=== PATIENT | male | born 1995 | race Caucasian/White ===

== ENCOUNTER 2024-05-27 19:03 | Emergency (ER) | payer SELFPAY ==
--- NOTE | 2024-05-27 19:30 | ED_ITS ---
HPI - URI/Sore Throat General Chief Complaint: Upper Respiratory Infection Stated Complaint: Bodyaches/Sinus Time Seen by Provider: 05/27/24 19:30 Source: patient Mode of arrival: ambulatory Limitations: no limitations History of Present Illness HPI Narrative: Alfred is a 28-year-old male patient presenting to the clinic today with complaints of tactile fever, body aches, headache, and sinus congestion x1 day. He reports his fiancee is also ill. MD elicited complaint: fever, sore throat and nasal congestion Review of Systems Review of Systems: Pertinent positives per HPI. Patient denies any fever, chills, rash, headache, visual changes, dizziness, cough, shortness of breath, chest pain, palpitations, nausea, vomiting, diarrhea, constipation, abdominal pain, or any urinary issues. PMFSH Comments At the time of my signature, I reviewed and agree with the nursing past medical, surgical, social, and family history. There is no relevant family history pertinent to the patient complaint. Exam Narrative: General: Well-developed, well nourished, in no apparent distress Head: Normocephalic, atraumatic Eyes: Pupils equally round and reactive to light bilaterally, EOM intact, sclera and conjunctive clear, no discharge, lids normal Ears: TMs intact and clear, ear canals clear, no drainage, grossly hearing normal. Nose: Nares patent, clear nasal discharge, no inflammation, no sinus tenderness. Mouth: Oral pharynx red without lesions or masses, good dentition, MMM. Postnasal drip Neck: Supple, trachea midline, no enlargement of anterior or posterior cervical nodes, no thyroid masses or goiter palpable. Cardio: Regular rate and rhythm, s1 and s2 normal, no murmur appreciated. Resp: Clear to auscultation bilaterally, no rhonchi, rales, wheezing or rubs Course Course Emergency Course: Portions of this record may have been created with voice recognition software. Level of Care: Express Care Visit Vital Signs Vital signs: Vital Signs Temperature 36.6 C 05/27/24 19:34 Pulse Rate 83 05/27/24 19:34 Respiratory Rate 15 05/27/24 19:34 Blood Pressure 136/66 05/27/24 19:34 Pulse Oximetry 97 05/27/24 19:34 Oxygen Delivery Room Air 05/27/24 19:34 Temperature 36.6 C 05/27/24 19:34 Pulse Rate 83 05/27/24 19:34 Respiratory Rate 15 05/27/24 19:34 Blood Pressure 136/66 05/27/24 19:34 Pulse Oximetry 97 05/27/24 19:34 Oxygen Delivery Room Air 05/27/24 19:34 Vital signs reviewed MDM - URI/Sore Throat MDM Narrative Medical decision making narrative: At the time of visit patient is resting comfortably on the exam table. Patient appears to be nontoxic. Labs: Influenza testing is positive for influenza A. Plan: Patient has influenza. Prescription for Tamiflu was sent to the [facility]. Supportive measures were discussed with the patient and they voiced understanding discharge instructions and agrees to treatment plan. Return precautions reviewed Differential Diagnosis Differential diagnosis: Likely upper respiratory infection, otitis media, sinusitis, viral infection, bronchitis, influenza, pharyngitis and other (COVID) Lab Data Labs: Lab Results 05/27/24 Range/Units 19:41 POC Influenza A Ag Positive (Negative) POC Influenza B Ag Negative (Negative) POC SARS CoV-2 Ag Negative (Negative) Discharge Plan Discharge Clinical Impression: Influenza A Patient Disposition: Home, Self-Care Condition: Stable Instructions: Antibiotic Form, Influenza (ED) Additional Instructions: Influenza testing is positive for influenza A. COVID test is negative. Take prescription medications only as prescribed-Tamiflu Increase fluids and stay well hydrated Tylenol/motrin for pain/fever Flonase and OTC antihistamines as directed Vicks vapor rub to open sinuses Sinus rinses for congestion Cepacol spray, cough drops, throat lozenges, warm tea with honey/lemon, gargle salt water to soothe throat BRAT diet for diarrhea Clear liquids x 24 hours then advance as tolerated for nausea/vomiting Go to the ED if you develop a worsening in your condition- high fever not controlled by Tylenol or Motrin, dehydration, weakness, lethargy, shortness of breath, or chest pain. Follow up with your PCP in 3-5 days if symptoms persist. Patient Language: Palauan Prescriptions: New oseltamivir [Tamiflu] 75 mg capsule 75 mg PO Q12H 5 Days Qty: 10 0RF Follow-up/Referrals: Lamonte,Gibran Adam MD [Primary Care Provider] - Stand Alone Forms: Work/School Release IP Time of Disposition: 19:38 Quality NIHSS Nursing Documentation ED NIHSS nursing documentation: reviewed/agree
[2024-05-27 19:34] VITALS: BP 136/66; PULSE 83; RESP 15; TEMP 36.6; O2SAT 97
[2024-05-27 19:44] LABS: EDCOVIDSCREEN Negative (Negative)
[2024-05-27 19:49] LABS: EDINFLUASCREEN Positive (Negative); EDINFLUBSCREEN Negative (Negative)
== END 2024-05-27 19:45 | disposition home or self-care (01) ==
PROVIDERS: Emergency Provider Nurse Practitioner Family; PCP Family Medicine
DX: J10.1 Influenza due to other identified influenza virus with other respiratory manifestations (principal); Z20.822 Contact with and (suspected) exposure to COVID-19
CPT/HCPCS: 87426; 87804; 99203; G0463

== ENCOUNTER 2024-09-05 08:27 | Emergency (ER) | payer BC, SELFPAY ==
[2024-09-05 08:35] VITALS: BP 132/74; PULSE 56; RESP 14; TEMP 36.3; O2SAT 99
--- NOTE | 2024-09-05 08:55 | ED.ALLEREA ---
HPI - Allergic Reaction General Chief complaint: Allergic Reaction Stated complaint: Allergic Reaction/Hard to Swallow Time Seen by Provider: 09/05/24 08:49 Source: patient, RN notes reviewed and old records reviewed Mode of arrival: ambulatory Limitations: no limitations History of Present Illness HPI narrative: 28 year old male who presents to [facility] care with complaints that he thinks he has an allergic reaction. Patient reports that he ate chilean food around 8pm last night of fried rice and orange chicken with red pepper flakes which he has had before with no problems. He states that within a few minutes of eating the food he started having some burning in his throat, stuffy nose, increased mucous. and felt like it was hard to swallow and his uvula started to swell. Patient reports did not have any allergy medication in the home so took some Ibuprofen. Patient continues to have swelling of his uvula and feeling like it is hard to swallow, is able to control his own secretion, no tongue or lip swelling present. MD complaint: other (uvula swollen, hard to swallow) Onset (ago): day(s) (started last night around 2009) Exposure: food (ate [place]ian food of orange chicken with fried rice and red pepper flakes, has eaten before) Known history of allergy to: no foods or medications,positive for some environmental allergies, trees, grass Symptoms: other (uvula swollen and states hard to swallow) Severity: moderate Treatment prior to arrival: other (Patient took Ibuprofen) Previous Allergic Reaction History: none Related Data Allergies Allergy/AdvReac Type Severity Reaction Status Date / Time No Known Allergies Allergy Verified 09/05/24 08:55 Review of Systems Review of Systems: CONSTITUTIONAL: Denies fever, chills, or sweats. EYES: Denies visual changes, redness, or discharge. ENT: Denies rhinorrhea, congestion,states throat burning and has swollen uvula, no otalgia, states feels hard to swallow but is able to swallow. CARDIOVASCULAR: Denies chest pain, palpitations, or edema. RESPIRATORY: Denies cough or dyspnea, no trouble with breathing GASTROINTESTINAL: Denies abdominal pain, nausea, vomiting, or diarrhea. GENITOURINARY: Denies dysuria or hematuria. SKIN: Denies rash or itching. MUSCULOSKELETAL: Denies back pain, joint pain, or myalgia. NEUROLOGIC: Denies headache, numbness, or weakness. PSYCHIATRIC: Reports some anxiety or depression. All systems reviewed & are unremarkable except as noted in HPI and below PMFSH Social History Social History Smoking status: Current every day smoker Tobacco type: cigars Alcohol intake: current Alcohol use details: social Substance use: current Substance use type: marijuana Gender identity (if verbalized by the patient): Male Comments At time of signature, agree with nursing past medical, surgical, social and family history. There is no relevant family history pertinent to the presenting complaint Exam Narrative: GENERAL: Well-appearing, well-nourished, and in no acute distress. HEAD: Normocephalic, atraumatic. EYES: PERRLA and EOMI. ENT: Nares clear, no rhinorrhea or epistaxis. Mucous membranes moist.TM's normal with good light reflex, throat red with minimal redness of tonsils noted swelling of uvula present no tongue or lip swelling noted, states throat continues to have some burning sensation but denies any inability to manage his own secretions or swallow NECK: Supple.no lymphadenopathy CHEST: Clear to auscultation. No respiratory distress. no cough noted SAO2 100% on room air,no tachypnea noted. talks in full sentences HEART: Regular rate and rhythm. No murmur heard. Normal peripheral pulses. ABDOMEN: Soft, nontender, nondistended, normal active bowel sounds. EXTREMITIES: Normal range of motion. No edema. SKIN: Warm, dry, no rash. NEURO: No focal deficits. Alert and oriented x3. Course Course Emergency Course: Patient is aware of diagnosis, understands and agrees to treatment plan. Anticipatory guidance given. Patient agrees to follow-up as directed and is aware of reasons to seek care at the emergency department. Portions of this record may have been created with voice recognition software Level of Care: Express Care Visit Vital Signs Vital signs: Vital Signs Temperature 36.3 C L 09/05/24 08:35 Pulse Rate 56 L 09/05/24 08:35 Respiratory Rate 14 09/05/24 08:35 Blood Pressure 132/74 09/05/24 08:35 Pulse Oximetry 99 09/05/24 08:35 Temperature 36.3 C L 09/05/24 08:35 Pulse Rate 56 L 09/05/24 08:35 Respiratory Rate 14 05/18/25 08:35 Blood Pressure 132/74 09/05/24 08:35 Pulse Oximetry 99 09/05/24 08:35 Reviewed MDM - Allergic Reaction Differential Diagnosis Differential diagnosis: Likely allergic reaction and other (pharyngitis, uvulitis, swelling of uvula) Medical Records Attestation: I reviewed the patient's medical records. Lab Data Attestation: I reviewed the patient's lab results. Lab results narrative: strep screen negative, culture sent Labs: Lab Results 09/05/24 Range/Units 08:49 POC Grp A Strep Screen Negative (Negative) Critical Care Time Critical Care Time Critical Care Time: No Discharge Plan Discharge Clinical Impression: Allergic reaction to food Qualifiers: Encounter type: initial encounter Qualified Code(s): T78.1XXA - Other adverse food reactions, not elsewhere classified, initial encounter Patient Disposition: Home Condition: Stable Instructions: Uvulitis (ED), General Allergic Reaction (ED) Additional Instructions: rest today at home avoid any foods that are scratchy to the throat or irritating, avoid citrus drinks or any spicy foods Zyrtec daily for the next 10 days Pepcid 20 mg daily for 10 days Prednisone taper as prescribed If any increase in difficulty swallowing or with speaking or any swelling of lips or tongue, pr any feelings of shortness of breath go directly to the ED Your strep test today was negative. A throat culture will be sent to the laboratory for further testing. IF the test is positive, you will receive a phone call within 48 hours and an appropriate antibiotic will be initiated at that time. Benadryl 25-5- mg every 6 hours if any itching occurs can not drive while taking If your symptoms persist, change or worsen significantly before you can contact your personal physician then please, without delay, go to the emergency department for further evaluation. Follow-up with PCP in 7-10 days or sooner if needed Follow up with PCP soon in regards to your blood pressure which is elevated above threshold for referral. Blood pressure above 120/80 may indicate pre-hypertension. 132/74 Patient Language: Polish Prescriptions: New prednisone 10 mg tablet 10 mg PO DIRECTED Qty: 21 0RF Rx Instructions: see taper instructions 6 tabs day 1, 5 tabs day 2, 4 tabs day 3, 3 tabs day 4, 2 tabs day 5, 1 tab day 6 take with food famotidine [Pepcid] 20 mg tablet 20 mg PO DAILY Qty: 10 0RF Follow-up/Referrals: Lamonte,Gibran Adam MD [Primary Care Provider] - Stand Alone Forms: Work/School Release IP Time of Disposition: 09:35 Quality Alexandra Coma Scale Eyes: Open Verbal: Oriented and Alert Motor: Follows Commands [facility] Coma Total Score: 15
[2024-09-05] MEDS: methylPREDNISolone SOD SUCC 125 MG VIAL IM (09:16)
[2024-09-05 11:41] LABS: EDSTREPNEGPOS1 Negative (Negative)
== END 2024-09-05 09:41 | disposition home or self-care (01) ==
PROVIDERS: Emergency Provider Registered Nurse; PCP Family Medicine
DX: T78.1XXA Other adverse food reactions, not elsewhere classified, initial encounter (principal); F17.290 Nicotine dependence, other tobacco product, uncomplicated; F12.90 Cannabis use, unspecified, uncomplicated
CPT/HCPCS: 87081; 87880; 96372; 99213; G0463; J2919